=== PATIENT | male | born 1955 | race Caucasian/White ===

== ENCOUNTER 2017-12-31 08:32 | Day surgery (SDC) | payer BC ==
--- NOTE | 2017-12-31 07:49 | HP ---
DATE OF SURGERY: 12/31/2017 ANTICIPATED PROCEDURE: Excision of lipoma right arm. HISTORY OF PRESENT ILLNESS: The patient has enlarging lipoma of the right arm. He has had new stents placed in the right lower extremity by Dr. Hernandez. The patient presents for excision. PAST MEDICAL HISTORY: ALLERGIES: NONE. MEDICATIONS: Lisinopril, Simvastatin, Plavix, aspirin. PAST SURGICAL HISTORY: Stent surgery. SOCIAL HISTORY: Negative. FAMILY HISTORY: Negative. REVIEW OF SYSTEMS: PHYSICAL EXAMINATION: VITAL SIGNS: Normal. CHEST: Clear. COR: Regular. IMPRESSION: Lesion right arm. PLAN: Excision.
[~2017-12-31 08:32] MED LIST: Lactated Ringers 1,000 ML IV ONE; XYLOCAINE 1% HCL 20 ML MDV ONE
[2017-12-31] MEDS ORDERED: VERSED 5 MG/5 ML IV ONE (08:33)
[2017-12-31] MEDS ORDERED: DEMEROL 50 MG SDV IV ONE (08:33)
[2017-12-31] MEDS ORDERED: Lactated Ringers 1,000 ML IV ONE ×2 (09:03→09:04)
[2017-12-31] MEDS: Lactated Ringers 1,000 ML IV SCH (09:16)
[2017-12-31] MEDS ORDERED: XYLOCAINE 1% HCL 20 ML MDV ONE (10:44)
[2017-12-31 11:15] VITALS: O2SAT 98
[2017-12-31 12:55] VITALS: BP 122/75; PULSE 66
--- NOTE | 2018-01-01 15:42 | OP ---
SURGERY DATE: 12/31/17 SURGERY TIME: 1024 PREOPERATIVE DIAGNOSIS: 1. ENLARGING PAINFUL LIPOMA OF THE RIGHT SHOULDER, 7 CM. POSTOPERATIVE DIAGNOSIS: 1. ENLARGING PAINFUL LIPOMA OF THE RIGHT SHOULDER, 7 CM. PROCEDURE: 1. Excision and closure. SURGEON: Eduardo Collado M.D. ANESTHESIA: Local, IV sedation. COMPLICATIONS: None. CONDITION: Stable. INDICATION: Patient has enlarging painful lipoma. OPERATIVE PROCEDURE: Taken to surgery. IV sedation titrated. Oximetry was greater than 90%. 1% Lidocaine. The tumor was multilobulated. It was 7 cm. It was removed in toto. It was about 7 cm X 5 cm. It was flat on the bottom and semispherical on top. Closed with 3-0 Vicryl subq. Steri-strips and sterile dressing. Patient tolerated the procedure satisfactory.
== END 2017-12-31 12:25 | disposition home or self-care (01) ==
LOC: SDC 08:32
PROVIDERS: ATTEND Surgery
DX: D17.21 Benign lipomatous neoplasm of skin and subcutaneous tissue of right arm (principal)
CPT/HCPCS: 88304; 94250; J2175; J2250